=== PATIENT | female | born 1995 | race African-American/Black ===

== ENCOUNTER 2017-12-20 20:55 | Emergency (ER) | payer BC, OTHER ==
[~2017-12-20] VITALS: Ht 162.6 cm; Wt 61.2 kg
[~2017-12-20 20:55] MED LIST: KEFLEX500 MG PO; MACROBID 100 M100 M1 PO; NAPROSYN500 MG PO; NOHOMEMEDICATIONS; NORFLEX100 MG PO
[2017-12-20 22:00] LABS: URINE BILIRUBIN NEGATIVE (Negative); URINE BLOOD NEGATIVE (Negative); URINE CLARITY CLEAR; URINE COLOR YELLOW; URINE GLUCOSE-RANDOM* NEGATIVE (Negative); URINE KETONES 2+ (Negative); URINE LEUKOCYTES NEGATIVE (Negative); URINE NITRITE POSITIVE (Negative); URINE PROTEIN (DIPSTICK) NEGATIVE (Negative); URINE SPECIFIC GRAVITY 1.025 (1.005-1.035); URINE UROBILINOGEN 0.2 E.U./dl (0.2-1.0)
[2017-12-20] MEDS ORDERED: MACROBID 100 M100 M1 PO (22:05)
[2017-12-20 22:06] LABS: BACTERIA >30 Many /HPF (None Seen); CASTS None Seen /LPF (None Seen); CRYSTALS None Seen /LPF (None Seen); SQUAMOUS 4-10 Moderate /LPF (0-3)
[2017-12-20 22:07] LABS: URINE RBC None Seen /HPF (0-2); URINE WBC 0-5 Rare /HPF (0-5)
== END 2017-12-20 22:29 | disposition home or self-care (01) ==
LOC: ER 20:55
PROVIDERS: Nurse Practitioner
DX: O21.9 Vomiting of pregnancy, unspecified (principal); O23.40 Unspecified infection of urinary tract in pregnancy, unspecified trimester; O26.899 Other specified pregnancy related conditions, unspecified trimester; R11.0 Nausea; Z3A.00 Weeks of gestation of pregnancy not specified

== ENCOUNTER 2017-12-23 16:02 | Emergency (ER) | payer BC, OTHER ==
[~2017-12-23] VITALS: Ht 157.5 cm; Wt 61.2 kg
[2017-12-23] MEDS ORDERED: PHENERGAN 25 MG25 M1 PO (16:32)
[2017-12-23 16:38] LABS: URINE BLOOD TRACE (Negative); URINE CLARITY CLEAR; URINE COLOR YELLOW; URINE GLUCOSE-RANDOM* NEGATIVE (Negative); URINE KETONES TRACE (Negative); URINE LEUKOCYTES NEGATIVE (Negative); URINE NITRITE POSITIVE (Negative); URINE PROTEIN (DIPSTICK) TRACE (Negative); URINE SPECIFIC GRAVITY >= 1.030 (1.005-1.035); URINE UROBILINOGEN 0.2 E.U./dl (0.2-1.0)
[2017-12-23 16:39] LABS: ICTOTEST (BILI CONFIRMATORY) Negative (Negative); URINE BILIRUBIN NEGATIVE (Negative)
[2017-12-23 16:46] LABS: CASTS None Seen /LPF (None Seen); CRYSTALS None Seen /LPF (None Seen); SQUAMOUS 4-10 Moderate /LPF (0-3)
[2017-12-23 16:47] LABS: URINE RBC 0-2 Rare /HPF (0-2); URINE WBC 0-5 Rare /HPF (0-5)
== END 2017-12-23 19:00 | disposition home or self-care (01) ==
LOC: ER 16:02
PROVIDERS: Emergency Medicine
DX: O26.891 Other specified pregnancy related conditions, first trimester (principal); Z3A.00 Weeks of gestation of pregnancy not specified; R11.2 Nausea with vomiting, unspecified

== ENCOUNTER 2018-01-12 13:28 | Emergency (ER) | payer BC, OTHER ==
[~2018-01-12] VITALS: Ht 160 cm; Wt 62.6 kg
[~2018-01-12 13:28] MED LIST changes: +PHENERGAN 25 MG25 M1 PO
[2018-01-12] MEDS ORDERED: FLAGYL500 MG PO (13:58)
[2018-01-12] MEDS ORDERED: ZOFRAN ODT4 MG PO (13:58)
[2018-01-12 14:56] LABS: ABSOLUTE NEUTROPHILS 9.7 thou/uL (1.4-8.2); BASOPHILS 0.4 % (0.0-2.0); EOSINOPHILS 0.3 % (0.0-3.0); HEMATOCRIT 41.8 % (37.0-47.0); LYMPHOCYTES 8.9 % (24.0-44.0); MCH 29.3 pg (26.0-34.0); MCHC 33.5 g/dL (28.0-37.0); MCV 87.4 fL (80.0-100.0); MONOCYTES 7.9 % (1.0-8.0); PLATELET COUNT 334 thou/uL (150-400); POLYS 82.5 % (36.0-66.0); RBC 4.79 mil/uL (4.20-5.00); WBC 11.8 thou/uL (4.0-11.0)
[2018-01-12 15:04] LABS: CALCIUM 10.6 mg/dL (8.5-10.1); CREATININE 0.8 mg/dL (0.6-1.0)
[2018-01-12 15:10] LABS: TOTAL PROTEIN 8.6 g/dL (6.4-8.2)
[2018-01-12] MEDS ORDERED: PROMS25 WY RECTAL (15:53)
== END 2018-01-12 17:55 | disposition home or self-care (01) ==
LOC: ER 13:28
PROVIDERS: Emergency Medicine
DX: O21.0 Mild hyperemesis gravidarum (principal); O26.891 Other specified pregnancy related conditions, first trimester; E87.6 Hypokalemia; Z3A.11 11 weeks gestation of pregnancy

== ENCOUNTER 2018-12-20 10:02 | Emergency (ER) | payer OTHER ==
[~2018-12-20] VITALS: Ht 177.8 cm; Wt 61.2 kg
[~2018-12-20 10:02] MED LIST changes: +FLAGYL500 MG PO; +PROMS25 WY RECTAL; +ZOFRAN ODT4 MG PO
[2018-12-20 10:49] LABS: ABSOLUTE NEUTROPHILS 2.5 thou/uL (1.4-8.2); BASOPHILS 0.6 % (0.0-2.0); EOSINOPHILS 4.6 % (0.0-3.0); HEMATOCRIT 34.9 % (37.0-47.0); HEMOGLOBIN 11.7 gm/dL (12.0-15.0); LYMPHOCYTES 41.8 % (24.0-44.0); MCH 28.9 pg (26.0-34.0); MCHC 33.4 g/dL (28.0-37.0); MCV 86.5 fL (80.0-100.0); MONOCYTES 7.6 % (1.0-8.0); PLATELET COUNT 221 thou/uL (150-400); POLYS 45.4 % (36.0-66.0); RBC 4.04 mil/uL (4.20-5.00); RDW 15.1 % (10.5-14.5); WBC 5.5 thou/uL (4.0-11.0)
[2018-12-20 10:57] LABS: CALCIUM 8.9 mg/dL (8.5-10.1); CREATININE 0.7 mg/dL (0.6-1.0)
[2018-12-20 11:02] LABS: ALBUMIN 3.9 g/dL (3.4-5.0); TOTAL BILIRUBIN 0.5 mg/dL (<0.1-1.0); TOTAL PROTEIN 7.5 g/dL (6.4-8.2)
[2018-12-20 11:34] LABS: URINE BILIRUBIN NEGATIVE (Negative); URINE BLOOD TRACE (Negative); URINE CLARITY CLEAR; URINE COLOR YELLOW; URINE GLUCOSE-RANDOM* NEGATIVE (Negative); URINE KETONES NEGATIVE (Negative); URINE LEUKOCYTES-REFLEX NEGATIVE (Negative); URINE NITRITE-REFLEX NEGATIVE (Negative); URINE PROTEIN (DIPSTICK) NEGATIVE (Negative); URINE SPECIFIC GRAVITY >= 1.030 (1.005-1.035); URINE UROBILINOGEN 0.2 E.U./dl (0.2-1.0)
[2018-12-20] MEDS ORDERED: ONDANSETRON HCL4 M2 PO (12:07)
[2018-12-20 12:24] VITALS: BP 105/68
== END 2018-12-20 12:25 | disposition home or self-care (01) ==
LOC: ER 10:02
PROVIDERS: Physician Assistant
DX: E86.0 Dehydration (principal); R51 Headache; R11.0 Nausea; R74.8 Abnormal levels of other serum enzymes